=== PATIENT | female | born 1965 | race African-American/Black ===

== ENCOUNTER 2016-09-24 14:16 | Emergency (ER) | payer OTHER ==
[2016-09-24 14:21] VITALS: PULSE 85; BMI 32.8
--- NOTE | 2016-09-24 15:45 | PDOC ---
History of Present Illness - General History Source: Patient Exam Limitations: No Limitations - History of Present Illness Initial Comments: 09/24/16 16:08 The patient is a 51 year old female, with a significant past medical history of diabetes, breast CA and back arthritis, who presents to the emergency department with generalized weakness and urine incontinence since last night. She reports that she took a new medication yesterday, which she belives may be the cause of her symptoms. She notes that when she took it last night, she went to sleep around 10pm, waking up at 6:30am without any complications. While at work, her colleagues noticed that she was slightly slurring her speech. She notes that she felt confused, has a sour taste in her mouth and elicits some mild chest pain. She also notes that she checked her blood sugar this morning, which was 140s. She reports that she is currently being worked up for possible return of her breast CA. The patient denies shortness of breath, headache and dizziness. Denies fever, chills, nausea, vomit, diarrhea and constipation. Denies dysuria, frequency, urgency and hematuria. Allergies: None Past surgical history: None reported Social history: Current smoker (10 daily). No alcohol or drug use reported <Ascencion Ornelas - Last Filed: 09/24/16 16:08> <Aaliyah Torres - Last Filed: 09/24/16 21:05> - General History Source: Patient Exam Limitations: No Limitations <Shayla Green - Last Filed: 09/25/16 08:34> - General Chief Complaint: Weakness Stated Complaint: WEAKNESS Time Seen by Provider: 09/24/16 14:43 Past History <Ascencion Ornelas - Last Filed: 09/24/16 16:08> <Aaliyah Torres - Last Filed: 09/24/16 21:05> - Past Medical History Cancer: Yes (R BREAST) COPD: Yes Diabetes: Yes Suicide Attempt (Hx): No Other medical history: Back Arthritis - Psycho/Social/Smoking Cessation Hx Suicidal Ideation: No Smoking Status: Yes Smoking History: Current every day smoker Number of Cigarettes Smoked Daily: 10 Information on smoking cessation initiated: Yes 'Breaking Loose' booklet given: 09/24/16 Hx Alcohol Use: No Drug/Substance Use Hx: No Substance Use Type: None <Shayla Green - Last Filed: 09/25/16 08:34> - Past Medical History Allergies/Adverse Reactions: Allergies Allergy/AdvReac Type Severity Reaction Status Date / Time No Known Allergies Allergy Verified 09/24/16 14:21 Home Medications: Ambulatory Orders Gabapentin [Neurontin -] 300 mg PO TID 01/25/16 Letrozole 2.5 mg PO HS 01/25/16 Liraglutide [Victoza -] 1.8 mg SQ HS 01/25/16 Sitagliptin Phosphate [Januvia] 100 mg PO DAILY 01/25/16 Diclofenac Sodium 50 mg PO BID 09/24/16 Review of Systems - Review of Systems Able to Perform ROS?: Yes Comments:: 09/24/16 16:08 GENERAL/CONSTITUTIONAL: (+) Generalized weakness. No fever or chills. HEAD, EYES, EARS, NOSE AND THROAT: No change in vision. No ear pain or discharge. No sore throat. CARDIOVASCULAR: No chest pain or shortness of breath RESPIRATORY: No cough, wheezing, or hemoptysis. GASTROINTESTINAL: No nausea, vomiting, diarrhea or constipation. GENITOURINARY: (+) Urinary incontinence. No dysuria, frequency MUSCULOSKELETAL: No joint or muscle swelling or pain. No neck or back pain. SKIN: No rash NEUROLOGIC: No headache, vertigo, loss of consciousness, or change in strength/ sensation. ENDOCRINE: No increased thirst. No abnormal weight change HEMATOLOGIC/LYMPHATIC: No anemia, easy bleeding, or history of blood clots. ALLERGIC/IMMUNOLOGIC: No hives or skin allergy. <Ascencion Ornelas - Last Filed: 09/24/16 16:08> *Physical Exam - Vital Signs Last Vital Signs Temp Pulse Resp BP Pulse Ox 98 F 85 18 144/75 98 09/24/16 14:19 09/24/16 14:19 09/24/16 14:19 09/24/16 14:19 09/24/16 14:19 - Physical Exam Comments: 09/24/16 16:10 GENERAL: Awake, alert, and fully oriented, in no acute distress HEAD: No signs of trauma, normocephalic, atraumatic EYES: PERRLA, EOMI, sclera anicteric, conjunctiva clear ENT: Auricles normal inspection, hearing grossly normal, nares patent, oropharynx clear without exudates. Moist mucosa NECK: Normal ROM, supple, no lymphadenopathy, JVD, or masses LUNGS: No distress, speaks full sentences, clear to auscultation bilaterally HEART: Regular rate and rhythm, normal S1 and S2, no murmurs, rubs or gallops, peripheral pulses normal and equal bilaterally. ABDOMEN: Soft, nontender, normoactive bowel sounds. No guarding, no rebound. No masses EXTREMITIES: Normal inspection, Normal range of motion, no edema. No clubbing or cyanosis. NEUROLOGICAL: Cranial nerves II through XII grossly intact. Normal speech, normal gait, no focal sensorimotor deficits SKIN: Warm, Dry, normal turgor, no rashes or lesions noted. <Ascencion Ornelas - Last Filed: 09/24/16 16:08> - Vital Signs Last Vital Signs Temp Pulse Resp BP Pulse Ox 98 F 85 18 144/75 98 09/24/16 14:19 09/24/16 14:19 09/24/16 14:19 09/24/16 14:19 09/24/16 14:19 <Aaliyah Torres - Last Filed: 09/24/16 21:05> - Vital Signs Last Vital Signs Temp Pulse Resp BP Pulse Ox 98 F 85 18 144/75 98 09/24/16 14:19 09/24/16 14:19 09/24/16 14:19 09/24/16 14:19 09/24/16 14:19 <Shayla Green - Last Filed: 09/25/16 08:34> ED Treatment Course - LABORATORY CBC & Chemistry Diagram: 09/24/16 15:51 09/24/16 15:51 <Ascencion Ornelas - Last Filed: 09/24/16 16:08> - LABORATORY CBC & Chemistry Diagram: 09/24/16 15:51 09/24/16 15:51 - ADDITIONAL ORDERS Additional order review: Laboratory Results 09/24/16 09/24/16 18:49 15:51 Sodium 143 Potassium 3.9 Chloride 107 Carbon Dioxide 23 Anion Gap 13 BUN 8 Creatinine 0.7 Creat Clearance w eGFR > 60 Random Glucose 136 H Calcium 9.3 Total Bilirubin 0.2 D AST 14 L ALT 21 Alkaline Phosphatase 162 H Total Protein 7.5 Albumin 3.7 Urine Color Ltyellow Urine Appearance Clear Urine pH 5.0 Urine Protein Negative Urine Glucose (UA) 2+ H Urine Ketones Negative Urine Blood Negative Urine Nitrite Negative Urine Bilirubin Negative Urine Urobilinogen Negative Ur Leukocyte Esterase Negative Acetone, Qual Negative L 09/24/16 15:51 RBC 4.54 MCV 85.9 MCHC 32.0 RDW 14.3 MPV 11.4 H Neutrophils % 71.4 Lymphocytes % 21.3 D Monocytes % 5.8 Eosinophils % 0.8 Basophils % 0.7 <Aaliyah Torres - Last Filed: 09/24/16 21:05> - LABORATORY CBC & Chemistry Diagram: 09/24/16 15:51 09/24/16 15:51 <Shayla Green - Last Filed: 09/25/16 08:34> Medical Decision Making - Medical Decision Making 09/24/16 15:45 A portion of this note was documented by scribe services under my direction. I have reviewed the details of the note, within reason, and agree with the documentation with the following case summary and management plan written by me. Nursing documentation reviewed and incorporated into medical decision making 51 yo F h/o DM, breast CA, arthritis (managed by pain management) p/w complaint of generalized weakness. She was started on Diclofenac for her back pain, She tool one last night and awoke this morning very groggy She drove to work and was noted by staff members to be groggy She then drove to the ER, missed the exit and wandered for approximately 1 hours prior to arriving in the ER (according to her friend) She states that her back feels better She denies headache, nausea, vomiting She denies fevers or chills She had coffee and potato chips for breakfast. She had a protein shake for lunch. Fingerstick this morning 140 She currently feels a bit better She is concerned that she might have had an PR or a stroke Will do labs, ekg, head CT Pt is currently being worked up for recurrence of her breast cancer ?symptoms related to metastatic disease On examination Motor intact Ambulatory with no difficulty Sensation in tact Pt signed out to Dr Torres <Shayla Green - Last Filed: 09/25/16 08:34> *DC/Admit/Observation/Transfer - Attestations Scribe Attestion: 09/24/16 16:10 Documentation prepared by Ascencion Ornelas, acting as medical technologist chief for Shayla Green MD <CeciAscencion Lashell - Last Filed: 09/24/16 16:08> <Aaliyah Torres - Last Filed: 09/24/16 21:05> <Shayla Green - Last Filed: 09/25/16 08:34> Diagnosis at time of Disposition: Weakness Adverse effect of diclofenac sodium Qualifiers: Encounter type: initial encounter Qualified Code(s): T39.395A - Adverse effect of other nonsteroidal anti-inflammatory drugs [NSAID], initial encounter - Discharge Dispostion Disposition: HOME Condition at time of disposition: Stable - Patient Instructions Printed Discharge Instructions: Diclofenac, DI for Adverse Drug Reaction -- Other Additional Instructions: please follow up with your primary physician - Post Discharge Activity Work/School Note: Back to Work
[2016-09-24 16:10] LABS: BASOPHIL 0.7 % (0-2.0); EOSINOPHIL 0.8 % (0-4.5); MCH 27.5 pg (25.7-33.7); MEAN CELL VOLUME 85.9 fl (80-96); MEAN PLT VOLUME 11.4 fl (7.5-11.1); NEUTROPHILS 71.4 % (42.8-82.8); PLATELET COUNT 180 K/MM3 (134-434); RDW 14.3 % (11.6-15.6); WHITE BLOOD COUNT 13.1 K/mm3 (4.0-10.0)
[2016-09-24 17:08] LABS: ALBUMIN 3.7 g/dl (3.4-5.0); ALK PHOS 162 U/L (45-117); ANION GAP 13 (8-16); BILIRUBIN,TOTAL 0.2 mg/dL (0.2-1.0); CALCIUM 9.3 mg/dL (8.5-10.1); CO2 23 mmol/L (21-32); COCKROFT - GAULT 141.3635; CREATININE 0.7 mg/dL (0.55-1.02); GLUCOSE,RANDOM 136 mg/dL (74-106); SGOT/AST 14 U/L (15-37); SGPT/ALT 21 U/L (12-78); TOT PROT 7.5 g/dl (6.4-8.2)
[2016-09-24 19:11] LABS: ACETONE SERUM NEGATIVE (NEGATIVE)
[2016-09-24 19:23] LABS: URINE APPEARANCE CLEAR; URINE BILIRUBIN NEGATIVE (NEGATIVE); URINE BLOOD NEGATIVE (NEGATIVE); URINE COLOR LTYELLOW; URINE GLUCOSE (UA) 2+ (NEGATIVE); URINE KETONE NEGATIVE (NEGATIVE); URINE LEUK ESTERASE NEGATIVE (NEGATIVE); URINE NITRITE NEGATIVE (NEGATIVE); URINE PROTEIN NEGATIVE (NEGATIVE); URINE UROBILINOGEN NEGATIVE E.U./dl (0.2-1.0)
[2016-09-24 21:10] VITALS: BP 133/91; TEMP 98
--- NOTE | 2016-09-26 16:36 | EKG ---
Test Reason : Blood Pressure : / mmHG Vent. Rate : 086 BPM Atrial Rate : 086 BPM P-R Int : 166 ms QRS Dur : 080 ms QT Int : 372 ms P-R-T Axes : 043 016 015 degrees QTc Int : 445 ms NORMAL SINUS RHYTHM POSSIBLE LEFT ATRIAL ENLARGEMENT BORDERLINE ECG WHEN COMPARED WITH ECG OF 05-DEC-2012 10:47, NO SIGNIFICANT CHANGE WAS FOUND Confirmed by AMANDA ZAVALETA MD ([id number]) on 09/26/2016 4:35:45 PM Referred By: Confirmed By:AMANDA ZAVALETA MD
== END 2016-09-24 21:09 | disposition home or self-care (01) ==
LOC: JER 14:16
DX: T39.315A Adverse effect of propionic acid derivatives, initial encounter (principal); Y92.89 Other specified places as the place of occurrence of the external cause; E11.9 Type 2 diabetes mellitus without complications; Z79.84 Long term (current) use of oral hypoglycemic drugs; Z85.3 Personal history of malignant neoplasm of breast; M46.90 Unspecified inflammatory spondylopathy, site unspecified; F17.210 Nicotine dependence, cigarettes, uncomplicated
CPT/HCPCS: 36415; 70450-TC; 71010-TC; 80053; 81003; 82009; 85025; 87086; 93005; 93010; 99285-25

== ENCOUNTER 2017-06-13 12:18 | Emergency (ER) | payer OTHER ==
[2017-06-13 12:33] VITALS: BP 114/68; PULSE 94; TEMP 98.3; BMI 32.8
--- NOTE | 2017-06-13 13:29 | PDOC ---
History of Present Illness - General Chief Complaint: Cold Symptoms Stated Complaint: THROAT PAIN Time Seen by Provider: 06/13/17 13:09 History Source: Patient Exam Limitations: No Limitations - History of Present Illness Initial Comments: 06/13/17 13:28 52-year-old female presents to the ED with complaints of cough for the past 3 days along with fever for the past 3 days. Patient states when taking TheraFlu with good improvement but states to length of symptoms she decided come to the ER for further evaluation. Patient denies shortness of breath, chest pain, productive cough, Tylenol pain, or nausea. Patient does smoke cigarettes on a daily basis and states gets bronchitis frequently. Timing/Duration: reports: other (3 days) Severity: reports: mild Possible Cause: Yes: occasional episodes Associated Symptoms: reports: cough, fever/chills Past History - Travel Traveled outside of the country in the last 30 days: No - Past Medical History Allergies/Adverse Reactions: Allergies Allergy/AdvReac Type Severity Reaction Status Date / Time No Known Allergies Allergy Verified 06/13/17 12:33 Home Medications: Ambulatory Orders Gabapentin [Neurontin -] 300 mg PO TID 01/25/16 Letrozole 2.5 mg PO HS 01/25/16 Liraglutide [Victoza -] 1.8 mg SQ HS 01/25/16 Sitagliptin Phosphate [Januvia] 100 mg PO DAILY 01/25/16 Diclofenac Sodium 50 mg PO BID 09/24/16 Cancer: Yes (R BREAST) COPD: Yes Diabetes: Yes - Suicide/Smoking/Psychosocial Hx Smoking Status: Yes Smoking History: Current every day smoker Number of Cigarettes Smoked Daily: 10 Information on smoking cessation initiated: Yes 'Breaking Loose' booklet given: 06/13/17 Hx Alcohol Use: No Drug/Substance Use Hx: No Substance Use Type: None Patient Lives Alone: No Lives with/in: spouse/SO Review of Systems - Review of Systems Able to Perform ROS?: No Constitutional: Yes: Chills, Fever HEENTM: No: Symptoms Reported, Throat Pain Respiratory: Yes: Cough Cardiac (ROS): No: Symptoms Reported ABD/GI: No: Symptoms Reported : No: Symptoms Reported Musculoskeletal: No: Symptoms Reported Integumentary: No: Symptoms Reported Neurological: Yes: Headache *Physical Exam - Vital Signs Last Vital Signs Temp Pulse Resp BP Pulse Ox 98.3 F 94 H 19 114/68 99 06/13/17 12:31 06/13/17 12:31 06/13/17 12:31 06/13/17 12:31 06/13/17 12:31 - Physical Exam General Appearance: Yes: Nourished, Appropriately Dressed. No: Apparent Distress HEENT: positive: EOMI, BHARAT, Normal Voice, TMs Normal, Pharynx Normal. negative : Pale Conjunctivae Neck: positive: Supple Respiratory/Chest: positive: Lungs Clear, Normal Breath Sounds. negative: Respiratory Distress, Accessory Muscle Use Cardiovascular: positive: Regular Rhythm, Regular Rate. negative: Murmur Gastrointestinal/Abdominal: positive: Soft. negative: Tenderness Integumentary: positive: Normal Color, Warm, Moist Neurologic: positive: Normal Mood/Affect, Motor Strength 5/5 Medical Decision Making - Medical Decision Making 06/13/17 13:32 Patient with fever, cough, and headache for the past 3 days. Patient also smokes cigarette and daily basis and states her symptoms are similar to that of bronchitis which she's had in the past. Patient will be discharged with azithromycin and 2 days of prednisone. *DC/Admit/Observation/Transfer Diagnosis at time of Disposition: Bronchitis - Discharge Dispostion Disposition: HOME Condition at time of disposition: Good - Referrals - Patient Instructions Printed Discharge Instructions: DI for Acute Bronchitis Additional Instructions: Please take prednisone for the next 2 days as prescribed. please take azithromycin until completed. do not smoke cigarettes. - Post Discharge Activity
== END 2017-06-13 13:38 | disposition home or self-care (01) ==
LOC: JERFT 12:18
DX: J40 Bronchitis, not specified as acute or chronic (principal); E11.9 Type 2 diabetes mellitus without complications; Z79.84 Long term (current) use of oral hypoglycemic drugs; J44.9 Chronic obstructive pulmonary disease, unspecified; Z85.3 Personal history of malignant neoplasm of breast; F17.210 Nicotine dependence, cigarettes, uncomplicated
CPT/HCPCS: 99281-25

== ENCOUNTER 2017-09-01 21:22 | Inpatient (IN) | payer OTHER ==
--- NOTE | 2017-09-01 21:28 | PDOC ---
Rapid Medical Evaluation Chief Complaint: Pain Time Seen by Provider: 09/01/17 21:26 Medical Evaluation: Allergies Allergy/AdvReac Type Severity Reaction Status Date / Time No Known Allergies Allergy Verified 09/01/17 21:26 I have performed a brief in-person evaluation of this patient. The patient presents with a chief complaint of: abdominal pain today with nausea and vomiting; points to epigastric region Pertinent physical exam findings: No abd TTP. I have ordered the following: labs, Ua The patient will proceed to the ED for further evaluation.
[2017-09-01 21:43] LABS: HEMATOCRIT 41.7 % (32.4-45.2); HEMOGLOBIN 14.3 GM/dL (10.7-15.3); MCH 28.7 pg (25.7-33.7); MCHC 34.3 g/dl (32.0-36.0); MEAN CELL VOLUME 83.7 fl (80-96); MEAN PLT VOLUME 10.6 fl (7.5-11.1); PLATELET COUNT 248 K/MM3 (134-434); RBC 4.98 M/mm3 (3.60-5.2); RDW 14.4 % (11.6-15.6); WHITE BLOOD COUNT 21.4 K/mm3 (4.0-10.0)
[2017-09-01 21:50] LABS: ADD RBC MORPHOLOGY YES
[2017-09-01] MEDS ORDERED: SODIUM CHLORIDE 1,000 ML IV STA (22:16)
[2017-09-01] MEDS ORDERED: ONDANSETRON 4 MG/2 ML VIAL IVPUSH ONE (22:16)
--- NOTE | 2017-09-01 22:16 | PDOC ---
History of Present Illness - General Chief Complaint: Pain Stated Complaint: FATIGUE Time Seen by Provider: 09/01/17 21:26 History Source: Patient - History of Present Illness Initial Comments: 09/01/17 22:24 52-year-old female complaining of nausea vomiting and intermittent abdominal cramping since 4 PM. Patient reports that yesterday she ate alejandra greens. Unsure if this is related to that. Patient reports that her daughter had some abdominal cramping but symptoms not as severe as her. + bm prior to vomiting episode. unsure if able to pass flatus. patient also reports that she has been dizzy for the last 3 days and today the dizziness has improved. patient reports chronic leukocytosis x 6 months. Past medical history: SBO, breast CA ([facility] ; Dr. Castañeda), and NIDDM PMD: clinic in [facility] Past History - Past Medical History Allergies/Adverse Reactions: Allergies Allergy/AdvReac Type Severity Reaction Status Date / Time No Known Allergies Allergy Verified 09/01/17 21:26 Home Medications: Ambulatory Orders Letrozole 2.5 mg PO HS 01/25/16 Liraglutide [Victoza -] 1.8 mg SQ HS 01/25/16 Sitagliptin Phosphate [Januvia] 100 mg PO DAILY 01/25/16 Glipizide/Metformin HCl [Glipizide-Metformin 5-500 mg] 1 each PO DAILY 09/02/17 Sennosides [Senna -] 2 tab PO HS #30 tablet 09/05/17 Cancer: Yes (R BREAST) COPD: Yes Diabetes: Yes - Suicide/Smoking/Psychosocial Hx Smoking Status: Yes Smoking History: Current every day smoker Number of Cigarettes Smoked Daily: 10 Information on smoking cessation initiated: No 'Breaking Loose' booklet given: 06/13/17 Hx Alcohol Use: No Drug/Substance Use Hx: No Substance Use Type: None Review of Systems - Review of Systems Able to Perform ROS?: Yes Is the patient limited Uzbek proficient: No Constitutional: No: Symptoms Reported, See HPI, Chills, Diaphoresis, Fever, Loss of Appetite, Malaise, Night Sweats, Weakness, Weight Stable, Unintentional Wgt. Loss, Unexplained wgt Loss, Other ABD/GI: Yes: Nausea, Vomiting, Abdominal cramping : No: Symptoms Reported, See HPI, Burning, Dysuria, Discharge, Frequency, Flank Pain, Hematuria, Incontinence, Pain, Urgency, Testicular Mass, Testicular Swelling, Lesions, Testicular Pain, Other Musculoskeletal: No: Symptoms Reported, See HPI, Back Pain, Gout, Joint Pain, Joint Swelling, Muscle Pain, Muscle Weakness, Neck Pain, Joint Stiffness, Other Neurological: Yes: Dizziness. No: Symptoms reported, See HPI, Headache, Numbness, Paresthesia, Pre-Existing Deficit, Seizure, Tingling, Tremors, Weakness, Unsteady Gait, Ataxia, Other *Physical Exam - Vital Signs Last Vital Signs Temp Pulse Resp BP Pulse Ox 98.4 F 113 H 20 139/49 97 09/01/17 21:26 09/01/17 21:26 09/01/17 21:26 09/01/17 21:26 09/01/17 21:26 - Physical Exam General Appearance: Yes: Appropriately Dressed, Moderate Distress Respiratory/Chest: positive: Lungs Clear, Normal Breath Sounds Gastrointestinal/Abdominal: positive: Normal Bowel Sounds, Tender (RUQ and epigastric area) Musculoskeletal: positive: Normal Inspection Extremity: positive: Normal Capillary Refill, Normal Inspection, Normal Range of Motion Integumentary: positive: Normal Color, Dry, Warm Neurologic: positive: Fully Oriented, Alert, Normal Mood/Affect ED Treatment Course - LABORATORY CBC & Chemistry Diagram: 09/04/17 09:10 09/04/17 09:10 Progress Note - Progress Note Progress Note: A: SBO; abdominal pain P: cbc cmp lactic acid blood culture Medical Decision Making - Medical Decision Making 09/02/17 01:[address] Cooper. recommends NGT. WBC: 20,000. as per patient leukocytosis history for 6 months. 09/02/17 01:36 NGT placed drained ~ 200 ml of stomach content . confirmation xray pending 09/02/17 05:13 abdominal xray: NGT at the tip of the stomach *DC/Admit/Observation/Transfer Diagnosis at time of Disposition: Small bowel obstruction - Discharge Dispostion Disposition: HOME Decision to Admit order: Yes - Prescriptions - Referrals - Patient Instructions - Post Discharge Activity
[2017-09-01] MEDS ORDERED: ONDANSETRON 4 MG/2 ML VIAL ONE (22:26)
[2017-09-01] MEDS ORDERED: FAMOTIDINE 20 MG/50 ML IVPB 20 MG/50 ML MG IVPB ONE (22:26)
[2017-09-01 22:27] LABS: ANISOCYTOSIS OCCASIONAL; PLATELET ESTIMATE ADEQUATE
[2017-09-01] MEDS ORDERED: morphine CARPU-JECT 4 MG/1 ML DISP.SYRIN IVPUSH ONE (22:32)
[2017-09-01] MEDS ORDERED: FAMOTIDINE IV 20 MG/12 ML VIAL IVPUSH ONE (22:33)
[2017-09-01 22:39] LABS: VENOUS PC02 41.8 mmHg (38-52); VENOUS PH 7.4 (7.32-7.42)
[2017-09-01 22:44] LABS: INR 1.03 (0.82-1.09); PROTHROMBIN TIME (PATIENT) 11.6 SEC (9.7-13.0)
[2017-09-01] MEDS ORDERED: morphine SULFATE 4 MG/ML VIAL ONE (22:51)
[2017-09-01 22:54] LABS: ALBUMIN 4.2 g/dl (3.4-5.0); ANION GAP 11 (8-16); BILIRUBIN,TOTAL 0.3 mg/dL (0.2-1.0); BLOOD UREA NITROGEN 16 mg/dL (7-18); CALCIUM 9.8 mg/dL (8.5-10.1); CHLORIDE 106 mmol/L (98-107); CO2 22 mmol/L (21-32); CREATININE 0.8 mg/dL (0.55-1.02); GLUCOSE,RANDOM 198 mg/dL (74-106); LIPASE 317 U/L (73-393); POTASSIUM 4.3 mmol/L (3.5-5.1); SGOT/AST 12 U/L (15-37); SGPT/ALT 18 U/L (12-78); SODIUM 139 mmol/L (136-145); TOT PROT 8.9 g/dl (6.4-8.2)
[2017-09-01 22:55] LABS: ALK PHOS 147 U/L (45-117)
[2017-09-01 23:22] LABS: URINE APPEARANCE CLEAR; URINE BILIRUBIN NEGATIVE (<2.0 mg/dL); URINE COLOR YELLOW; URINE GLUCOSE (UA) NEGATIVE (NEGATIVE); URINE KETONE NEGATIVE (NEGATIVE); URINE LEUK ESTERASE NEGATIVE (NEGATIVE); URINE NITRITE NEGATIVE (NEGATIVE); URINE PROTEIN NEGATIVE (NEGATIVE); URINE UROBILINOGEN 4.0 E.U/dl mg/dL (0.2-1.0)
[2017-09-02] MEDS ORDERED: SODIUM CHLORIDE 1,000 ML IV STA (01:18)
[2017-09-02] MEDS ORDERED: morphine CARPU-JECT 4 MG/1 ML DISP.SYRIN IVPUSH ONE (01:25)
[2017-09-02] MEDS ORDERED: morphine SULFATE 4 MG/ML VIAL ONE ×4 (01:40→11:57)
[2017-09-02] MEDS ORDERED: LIDOCAINE HCL 2% JELLY (5 ML/TUBE) ONE (01:48)
--- NOTE | 2017-09-02 03:02 | HP ---
CHIEF COMPLAINT: N/V abd pain PCP: [facility] HISTORY OF PRESENT ILLNESS: This is a 52 year old female with a significant past medical history of SBO many years ago, hysterectomy, chronic leukocytosis who presented to the ED with N/V and abdominal cramping since 4pm today. She reports she had a normal BM this morning and believes she is passing gas. ER course was notable for: (1) WBC 21.4 (2) lactic acid WNL Recent Travel: pt denies PAST MEDICAL HISTORY: SBO, BrCA 2009 s/p chemo/XRT, NIDDM, COPD, DM, chronic leukocytosis x 6months PAST SURGICAL HISTORY: L breast lumpectomy hysterectomy age 39 due to fibroids Social History: Smokin/4 ppd Alcohol: pt denies Drugs: pt denies Family History: mother with DM/HTN father murdered 2 siblings, no medical problems. Allergies No Known Allergies Allergy (Verified 09/01/17 21:26) HOME MEDICATIONS: 3 Medication Instructions Recorded Gabapentin [Neurontin -] 300 mg PO TID 01/25/16 Letrozole 2.5 mg PO HS 01/25/16 Liraglutide [Victoza -] 1.8 mg SQ HS 01/25/16 Sitagliptin Phosphate [Januvia] 100 mg PO DAILY 01/25/16 Diclofenac Sodium 50 mg PO BID 09/24/16 predniSONE [Deltasone -] 40 mg PO DAILY #4 tablet 06/13/17 REVIEW OF SYSTEMS CONSTITUTIONAL: Absent: fever, chills, diaphoresis, generalized weakness, malaise, loss of appetite, weight change HEENT: Absent: rhinorrhea, nasal congestion, throat pain, throat swelling, difficulty swallowing, mouth swelling, ear pain, eye pain, visual changes CARDIOVASCULAR: Absent: chest pain, syncope, palpitations, irregular heart rate, lightheadedness , peripheral edema RESPIRATORY: Absent: cough, shortness of breath, dyspnea with exertion, orthopnea, wheezing, stridor, hemoptysis GASTROINTESTINAL: abdominal pain, nausea, vomiting Absent: abdominal distension, diarrhea, constipation, melena, hematochezia GENITOURINARY: Absent: dysuria, frequency, urgency, hesitancy, hematuria, flank pain, genital pain MUSCULOSKELETAL: Absent: myalgia, arthralgia, joint swelling, back pain, neck pain SKIN: Absent: rash, itching, pallor HEMATOLOGIC/IMMUNOLOGIC: Absent: easy bleeding, easy bruising, lymphadenopathy, frequent infections ENDOCRINE: Absent: unexplained weight gain, unexplained weight loss, heat intolerance, cold intolerance NEUROLOGIC: Absent: headache, focal weakness or paresthesias, dizziness, unsteady gait, seizure, mental status changes, bladder or bowel incontinence PSYCHIATRIC: Absent: anxiety, depression, suicidal or homicidal ideation, hallucinations. PHYSICAL EXAMINATION Vital Signs - 24 hr 3 09/01/17 21:26 Temperature 98.4 F Pulse Rate 113 H Respiratory 20 Rate Blood Pressure 139/49 O2 Sat by Pulse 97 Oximetry (%) GENERAL: Awake, alert, and fully oriented, in no acute distress. HEAD: Normal with no signs of trauma. EYES: Pupils equal, round and reactive to light, extraocular movements intact, sclera anicteric, conjunctiva clear. No lid lag. EARS, NOSE, THROAT: Ears normal, nares patent, oropharynx clear without exudates. Moist mucous membranes. NECK: Normal range of motion, supple without lymphadenopathy, JVD, or masses. LUNGS: Breath sounds equal, clear to auscultation bilaterally. No wheezes, and no crackles. No accessory muscle use. HEART: Regular rate and rhythm, normal S1 and S2 without murmur, rub or gallop. ABDOMEN: NGT in place. Soft, nontender, not distended, normoactive bowel sounds , no guarding, no rebound, no masses. No hepatomegaly or splenomegaly. MUSCULOSKELETAL: Normal range of motion at all joints. No bony deformities or tenderness. No CVA tenderness. UPPER EXTREMITIES: 2+ pulses, warm, well-perfused. No cyanosis. No clubbing. No peripheral edema. LOWER EXTREMITIES: 2+ pulses, warm, well-perfused. No calf tenderness. No peripheral edema. NEUROLOGICAL: Cranial nerves II-XII intact. Normal speech. Normal gait. PSYCHIATRIC: Cooperative. Good eye contact. Appropriate mood and affect. SKIN: Warm, dry, normal turgor, no rashes or lesions noted, normal capillary refill. Laboratory Results - last 24 hr 3 09/01/17 09/01/17 09/01/17 21:28 21:28 21:36 WBC 21.4 H D RBC 4.98 Hgb 14.3 D Hct 41.7 MCV 83.7 MCH 28.7 MCHC 34.3 RDW 14.4 Plt Count 248 D MPV 10.6 Total Counted 100 Neutrophils % No Result Required. Neutrophils % (Manual) 86.0 H Lymphocytes % No Result Required. Lymphocytes % (Manual) 10.0 Monocytes % (Manual) 4 Platelet Estimate Adequate Anisocytosis Occasional PT with INR INR PTT (Actin FS) VBG pH POC VBG pCO2 POC VBG pO2 Mixed VBG HCO3 Sodium 139 Potassium 4.3 Chloride 106 Carbon Dioxide 22 Anion Gap 11 BUN 16 Creatinine 0.8 Creat Clearance w eGFR > 60 Random Glucose 198 H Lactic Acid Calcium 9.8 Total Bilirubin 0.3 D AST 12 L ALT 18 Alkaline Phosphatase 147 H Troponin I < 0.02 Total Protein 8.9 H Albumin 4.2 Lipase 317 Urine Color Urine Appearance Urine pH Ur Specific [place] Urine Protein Urine Glucose (UA) Urine Ketones Urine Blood Urine Nitrite Urine Bilirubin Urine Urobilinogen Ur Leukocyte Esterase Blood Type Antibody Screen 3 09/01/17 09/01/17 09/01/17 09/01/17 22:20 22:20 22:20 22:40 WBC RBC Hgb Hct MCV MCH MCHC RDW Plt Count MPV Total Counted Neutrophils % Neutrophils % (Manual) Lymphocytes % Lymphocytes % (Manual) Monocytes % (Manual) Platelet Estimate Anisocytosis PT with INR 11.60 INR 1.03 PTT (Actin FS) 29.0 VBG pH 7.40 POC VBG pCO2 41.8 POC VBG pO2 24.0 L Mixed VBG HCO3 25.1 H Sodium Potassium Chloride Carbon Dioxide Anion Gap BUN Creatinine Creat Clearance w eGFR Random Glucose Lactic Acid 1.6 Calcium Total Bilirubin AST ALT Alkaline Phosphatase Troponin I Total Protein Albumin Lipase Urine Color Urine Appearance Urine pH Ur Specific [place] Urine Protein Urine Glucose (UA) Urine Ketones Urine Blood Urine Nitrite Urine Bilirubin Urine Urobilinogen Ur Leukocyte Esterase Blood Type O POSITIVE Antibody Screen Negative 3 Urine Color Yellow 09/01/17 23:20 Urine Appearance Clear 09/01/17 23:20 Urine pH 5.0 (5.0-8.0) 09/01/17 23:20 Ur Specific [place] 1.032 (1.001-1.035) 09/01/17 23:20 Urine Protein Negative (NEGATIVE) 09/01/17 23:20 Urine Glucose (UA) Negative (NEGATIVE) 09/01/17 23:20 Urine Ketones Negative (NEGATIVE) 09/01/17 23:20 Urine Blood Negative (NEGATIVE) 09/01/17 23:20 Urine Nitrite Negative (NEGATIVE) 09/01/17 23:20 Urine Bilirubin Negative (<2.0 mg/dL) 09/01/17 23:20 Urine Urobilinogen 4.0 e.u/dl H 09/01/17 23:20 Ur Leukocyte Esterase Negative (NEGATIVE) 09/01/17 23:[address] abd/pelvis with contrast THIS IS A PRELIMINARY REPORT FROM IMAGING [facility]PERATOR IMPRESSION: Proximal small bowel obstruction with left lower quadrant transition point, possibly due to adhesions, without abscess or free air THIS DOCUMENT HAS BEEN ELECTRONICALLY SIGNED Trevor Levi MD 09/02/2017 00:51 EST ASSESSMENT/PLAN: 52yF with PMH SBO, BrCA 2009 s/p chemo/XRT, NIDDM, DM, chronic leukocytosis x 6months presented to the ED with N/V abdominal pain. SBO - NGT in place - morphine for pain PRN - ED spoke to Dr. Cooper, surgical consult appreciated - NPO - IVF leukocytosis - pt unsure of exact baseline, given no fever or other s/s acute infection will cont to monitor NIDDM - hold po meds while NPO - BGM with Novolog SS QID BrCA - cont letrozole DVT PPX - heparin 5000u BID FEN - NS @ 100cc/hr - BMP in am - NPO Dispo: Pt currently requires inpatient management of her emergent symptoms. Visit type - Emergency Visit Emergency Visit: Yes ED Registration Date: 09/01/17 Care time: The patient presented to the Emergency Department on the above date and was hospitalized for further evaluation of their emergent condition. - New Patient This patient is new to me today: Yes Date on this admission: 09/02/17 - Critical Care Critical Care patient: No Hospitalist Screening - Colonoscopy Questionnaire Colonoscopy Questionnaire: Colonoscopy Questionnaire - Patient: 50 - 75 years old and never had a screening colonoscopy: Unknown History of colon or rectal polyps, or CA: No History of IBD, Crohn's disease or UC: No History of abdominal radiation therapy as a child: No - Relative: 1 with colon or rectal CA, or polyps at age 60 or younger: No Colon or rectal CA diagnosed at age 45 or younger: No Multiple relatives with colon or rectal CA: No - Outcome: Screening Result: Negative Screen
[2017-09-02] MEDS ORDERED: ACETAMINOPHEN 1000 MG/100 ML VIAL (NON FORMULARY) IVPB PRN (03:08)
[2017-09-02] MEDS: SODIUM CHLORIDE 1,000 ML IV SCH ×2 (03:51→21:16)
[2017-09-02] MEDS ORDERED: ONDANSETRON 4 MG/2 ML VIAL ONE ×2 (04:44→11:56)
[2017-09-02] MEDS: morphine SULFATE 4 MG/ML VIAL IVPUSH PRN ×5 (04:48→20:30)
[2017-09-02] MEDS: ONDANSETRON 4 MG/2 ML VIAL IVPUSH PRN ×2 (04:48→12:25)
--- NOTE | 2017-09-02 09:59 | EKG ---
Test Reason : Blood Pressure : / mmHG Vent. Rate : 074 BPM Atrial Rate : 074 BPM P-R Int : 176 ms QRS Dur : 074 ms QT Int : 386 ms P-R-T Axes : 036 006 015 degrees QTc Int : 428 ms NORMAL SINUS RHYTHM CANNOT RULE OUT ANTERIOR INFARCT , AGE UNDETERMINED ABNORMAL ECG WHEN COMPARED WITH ECG OF 24-SEP-2016 16:32, NO SIGNIFICANT CHANGE WAS FOUND Confirmed by MD Shaina, Volodymyr ([id number]) on 09/02/2017 9:58:52 AM Referred By: Confirmed By:Volodymyr Merritt MD
[2017-09-02] MEDS: HEPARIN NA (PORCINE) 5,000 UNITS/ML 1ML VIAL SQ SCH ×2 (10:34→21:15)
[2017-09-02 11:07] VITALS: BMI 32.8
--- NOTE | 2017-09-02 11:09 | PN ---
Progress Note, Physician Chief Complaint: Abdominal pain SBO History of Present Illness: NAD, pain improved NGT, NPO to be seen by surgery IVF Acute on Chronic leukocytosis? - Current Medication List Current Medications: Active Medications Acetaminophen (Ofirmev Injection -) 1,000 mg IVPB Q6H PRN PRN Reason: PAIN LEVEL 4 - 6 Heparin Sodium (Porcine) (Heparin -) 5,000 unit SQ BID [facility] Last Admin: 09/02/17 10:34 Dose: 5,000 unit Sodium Chloride (Normal Saline -) 1,000 mls @ 100 mls/hr IV ASDIR [facility] Last Admin: 09/02/17 03:51 Dose: 100 mls/hr Morphine Sulfate (Morphine Sulfate) 2 mg IVPUSH Q4H PRN PRN Reason: PAIN LEVEL 7 - 10 Last Admin: 09/02/17 08:28 Dose: 2 mg Ondansetron HCl (Zofran Injection) 4 mg IVPUSH Q6H PRN PRN Reason: NAUSEA AND/OR VOMITING Last Admin: 09/02/17 04:48 Dose: 4 mg - Objective Vital Signs: Vital Signs Temperature 98.4 F 09/01/17 21:26 Pulse Rate 79 09/02/17 10:57 Respiratory Rate 18 09/02/17 10:57 Blood Pressure 153/81 09/02/17 10:57 O2 Sat by Pulse Oximetry (%) 98 09/02/17 10:57 Constitutional: Yes: Well Nourished, Calm, Mild Distress Cardiovascular: Yes: Regular Rate and Rhythm Respiratory: Yes: Regular Gastrointestinal: Yes: Normal Bowel Sounds, Soft, Abdomen, Obese Musculoskeletal: Yes: WNL Extremities: Yes: WNL Edema: No Neurological: Yes: Alert, Oriented Psychiatric: Yes: Alert, Oriented Labs: CBC, BMP 09/01/17 21:28 09/01/17 21:28 INR, PTT INR 1.03 (0.82-1.09) 09/01/17 22:20 Problem List - Problems (1) Small bowel obstruction Assessment/Plan: -NPO -NGT -Serial abdominal Xrays -Surgery consult -daily labs -pain management with acetaminophen IV and morphine Code(s): K56.609 - UNSP INTESTNL OBST, UNSP TO PARTIAL VERSUS COMPLETE OBST (2) Leukocytosis Assessment/Plan: Acute on Chronic -likely imflammatory -no LA -ID consult to r/o any infectious etiology -see oncologist outpatient for history of breast CA- on Letrozole O/P Code(s): D72.829 - ELEVATED WHITE BLOOD CELL COUNT, UNSPECIFIED Qualifiers: Leukocytosis type: unspecified Qualified Code(s): D72.829 - Elevated white blood cell count, unspecified (3) Diabetes Assessment/Plan: last A1c 1 year ago was 8.5 -repeat A1c at 8.9 -BGM -D50 IVP for BGM below 70 mg/dl -Insulin sliding scale Code(s): E11.9 - TYPE 2 DIABETES MELLITUS WITHOUT COMPLICATIONS Assessment/Plan see problem list DVT prophylaxis
[2017-09-02 13:21] LABS: BASO % 0.4 % (0-2.0); EOS % 0.7 % (0-4.5); HEMATOCRIT 36.8 % (32.4-45.2); HEMOGLOBIN 12.1 GM/dL (10.7-15.3); LYMPH % 24.8 % (8-40); MCHC 32.8 g/dl (32.0-36.0); MEAN CELL VOLUME 85.2 fl (80-96); MEAN PLT VOLUME 10.5 fl (7.5-11.1); MONO % 5.7 % (3.8-10.2); NEUT % 68.4 % (42.8-82.8); PLATELET COUNT 205 K/MM3 (134-434); RBC 4.32 M/mm3 (3.60-5.2); RDW 14.3 % (11.6-15.6); WHITE BLOOD COUNT 12.8 K/mm3 (4.0-10.0)
[2017-09-02 14:04] LABS: ANION GAP 8 (8-16); BLOOD UREA NITROGEN 9 mg/dL (7-18); CALCIUM 8.5 mg/dL (8.5-10.1); CHLORIDE 110 mmol/L (98-107); CO2 24 mmol/L (21-32); CREATININE 0.6 mg/dL (0.55-1.02); GLUCOSE,RANDOM 160 mg/dL (74-106); MAGNESIUM 1.8 mg/dL (1.8-2.4); PHOSPHOROUS 3.6 mg/dL (2.5-4.9); POTASSIUM 3.9 mmol/L (3.5-5.1); SODIUM 142 mmol/L (136-145)
[2017-09-02 14:22] LABS: URINE APPEARANCE CLEAR; URINE BILIRUBIN NEGATIVE (<2.0 mg/dL); URINE COLOR YELLOW; URINE GLUCOSE (UA) NEGATIVE (NEGATIVE); URINE KETONE TRACE (NEGATIVE); URINE LEUK ESTERASE NEGATIVE (NEGATIVE); URINE NITRITE NEGATIVE (NEGATIVE); URINE PROTEIN NEGATIVE (NEGATIVE); URINE UROBILINOGEN NEGATIVE mg/dL (0.2-1.0)
--- NOTE | 2017-09-02 15:33 | CONSULT ---
Consult Consult Specialty:: General Surgery Referred by:: ER/Dr. Tony Reason for Consultation:: SBO - History of Present Illness Chief Complaint: epigastric pain, n/v History of Present Illness: 52yo F smoker with h/o breast CA s/p R lumpectomy and XRT 2008, s/p c-sxn, s/p hysterectomy 13 yrs ago for fibroids, DM2, herniated disc in lower back, COPD, chronic leukocytosis, h/o SBO ~10 yrs ago treated conservatively, presented with acute onset of epigastric pain while driving yesterday associated with N/V afterward of her previous meal. The pain is "like contractions," and has been better after NGT placement in ER and morphine. In ER, she had wbc 21 initially, down to 12.8 today, and CT showing partial SBO with transition in LLQ, some dilated jejunal loops with normal caliber ileal loops and air/stool in colon. Pt reports passing gas, but has not passed stool yet. No fever/chills, normal tendency to constipation, no recent illness. She describes some visual changes on occasion recently that she usually associates with low blood sugar, but at those times, her sugar was normal. Has not had any abdominal pain or problems like previous SBO in these intervening years. NGT was placed by ER, 600 so far in canister. NPO/IVF. Seen in ER (no room yet), resting comfortably. Pt admitted to medicine, surgery asked to evaluate. - History Source History Provided By: Patient Limitations to Obtaining History: No Limitations - Past Medical History Pulmonary: Yes: COPD Gastrointestinal: Yes: GERD Reproductive: Yes: Fibroids ...: No Heme/Onc: Yes: Cancer (breast s/p R lumpectomy/XRT 2008) Musculoskeletal: Yes: Chronic low back pain (herniated disc) Endocrine: Yes: Diabetes Mellitus - Past Surgical History Past Surgical History: Yes: , Hysterectomy - Alcohol/Substance Use Hx Alcohol Use: No History of Substance Use: reports: None - Smoking History Smoking history: Current every day smoker Have you smoked in the past 12 months: Yes Aproximately how many cigarettes per day: 6 (cut down recently) - Social History ADL: Independent Home Medications - Allergies Allergies/Adverse Reactions: Allergies Allergy/AdvReac Type Severity Reaction Status Date / Time No Known Allergies Allergy Verified 09/01/17 21:26 - Home Medications Home Medications: Ambulatory Orders Letrozole 2.5 mg PO HS 01/25/16 Liraglutide [Victoza -] 1.8 mg SQ HS 01/25/16 Sitagliptin Phosphate [Januvia] 100 mg PO DAILY 01/25/16 Glipizide/Metformin HCl [Glipizide-Metformin 5-500 mg] 1 each PO DAILY 09/02/17 Family Disease History - Family Disease History Family History: Unremarkable (noncontributory) Review of Systems - Review of Systems Constitutional: denies: Chills, Fever Eyes: reports: Recent Change in Vision (describes episodes of ?floaters - usually related to low blood sugar but last 2 times glucose was normal in 90s- 100s). denies: Blurred Vision HENT: denies: Difficult Swallowing, Throat Pain Neck: denies: Swollen Glands, Tenderness Cardiovascular: denies: Chest Pain, Palpitations Respiratory: denies: Cough, SOB Gastrointestinal: reports: Abdominal Pain (with hpi), Constipation (tends to usually), Nausea, Vomiting (with hpi). denies: Diarrhea Genitourinary: denies: Burning, Dysuria Musculoskeletal: reports: Back Pain (chronic). denies: Joint Pain Integumentary: denies: Change in Color, Rash Neurological: denies: Dizziness, Headache Psychiatric: denies: Anxiety, Depression Physical Exam Vital Signs: Vital Signs Temperature 98.4 F 09/01/17 21:26 Pulse Rate 79 09/02/17 10:57 Respiratory Rate 18 09/02/17 11:49 Blood Pressure 153/81 09/02/17 10:57 O2 Sat by Pulse Oximetry (%) 95 09/02/17 11:49 Constitutional: Yes: Well Nourished, No Distress, Calm Eyes: Yes: Conjunctiva Clear, EOM Intact HENT: Yes: Atraumatic, Normocephalic, Other (NGT in place with clear and red- tinged output, ~700 in canister) Neck: Yes: Supple, Trachea Midline Cardiovascular: Yes: Regular Rate and Rhythm, Murmur (systolic) Respiratory: Yes: Regular, CTA Bilaterally Gastrointestinal: Yes: Soft, Abdomen, Obese, Hypoactive Bowel Sounds, Other ( healed Pfannenstiel and lower midline scars). No: Tenderness, Tenderness, Epigastrium ...Rectal Exam: Yes: Deferred Renal/: No: CVA Tenderness - Left, CVA Tenderness - Right Musculoskeletal: No: Back Pain (no direct tenderness), Joint Swelling Extremities: No: Cool, Cyanosis Edema: No Peripheral Pulses WNL: Yes Integumentary: No: Jaundice, Rash Neurological: Yes: Alert, Oriented Psychiatric: Yes: Alert, Oriented Labs: CBC, BMP 09/02/17 13:04 09/02/17 13:04 CMP Sodium 142 mmol/L (136-145) 09/02/17 13:04 Potassium 3.9 mmol/L (3.5-5.1) 09/02/17 13:04 Chloride 110 mmol/L (98-107) H 09/02/17 13:04 Carbon Dioxide 24 mmol/L (21-32) 09/02/17 13:04 Anion Gap 8 (8-16) 09/02/17 13:04 BUN 9 mg/dL (7-18) 09/02/17 13:04 Creatinine 0.6 mg/dL (0.55-1.02) 09/02/17 13:04 Creat Clearance w eGFR > 60 (>60) 09/01/17 21:28 Random Glucose 160 mg/dL (74-106) H 09/02/17 13:04 Hemoglobin A1c % 8.9 % (4.8-6.0) H 09/02/17 13:04 Lactic Acid 1.6 mmol/L (0.0-2.0) 09/01/17 22:40 Calcium 8.5 mg/dL (8.5-10.1) 09/02/17 13:04 Phosphorus 3.6 mg/dL (2.5-4.9) 09/02/17 13:04 Magnesium 1.8 mg/dL (1.8-2.4) 09/02/17 13:04 Total Bilirubin 0.3 mg/dL (0.2-1.0) D 09/01/17 21:28 AST 12 U/L (15-37) L 09/01/17 21:28 ALT 18 U/L (12-78) 09/01/17 21:28 Alkaline Phosphatase 147 U/L (45-117) H 09/01/17 21:28 Troponin I < 0.02 ng/ml (0.00-0.05) 09/01/17 21:36 Total Protein 8.9 g/dl (6.4-8.2) H 09/01/17 21:28 Albumin 4.2 g/dl (3.4-5.0) 09/01/17 21:28 Lipase 317 U/L (73-393) 09/01/17 21:28 INR, PTT INR 1.03 (0.82-1.09) 09/01/17 22:20 Urine Test Results Urine Color Yellow 09/02/17 14:06 Urine Appearance Clear 09/02/17 14:06 Urine pH 5.0 (5.0-8.0) 09/02/17 14:06 Ur Specific [place] 1.025 (1.001-1.035) 09/02/17 14:06 Urine Protein Negative (NEGATIVE) 09/02/17 14:06 Urine Glucose (UA) Negative (NEGATIVE) 09/02/17 14:06 Urine Ketones Trace (NEGATIVE) H 09/02/17 14:06 Urine Blood Negative (NEGATIVE) 09/02/17 14:06 Urine Nitrite Negative (NEGATIVE) 09/02/17 14:06 Urine Bilirubin Negative (<2.0 mg/dL) 09/02/17 14:06 Ur Leukocyte Esterase Negative (NEGATIVE) 09/02/17 14:06 Imaging - Results X-ray: Report Reviewed, Image Reviewed (NGT in place on AXR, upright films from today with paucity of gas, no free air, no contrast visible in colon) Cat Scan: Report Reviewed, Image Reviewed (images personally reviewed, consistent with partial SBO, no free air, no free fluid, s/p hysterectomy) Problem List - Problems (1) Partial intestinal obstruction Assessment/Plan: admitted to medicine NPO/NGT/IVF hold po meds while NGT/NPO GI/DVT prophylaxis serial AXR and exams keep lytes in normal range will follow with you Thank you for the opportunity to participate in the care of this patient. Code(s): K56.600 - PARTIAL INTESTINAL OBSTRUCTION, UNSPECIFIED TO CAUSE Qualifiers: Intestinal obstruction type: obstruction due to adhesions Qualified Code(s) : K56.51 - Intestinal adhesions [bands], with partial obstruction (2) Epigastric pain Code(s): R10.13 - EPIGASTRIC PAIN (3) Leukocytosis Assessment/Plan: down today, per notes has been followed as outpatient for this Code(s): D72.829 - ELEVATED WHITE BLOOD CELL COUNT, UNSPECIFIED Qualifiers: Leukocytosis type: unspecified Qualified Code(s): D72.829 - Elevated white blood cell count, unspecified (4) Diabetes mellitus type 2 in obese Code(s): E11.69 - TYPE 2 DIABETES MELLITUS WITH OTHER SPECIFIED COMPLICATION; E66.9 - OBESITY, UNSPECIFIED
[2017-09-02] MEDS ORDERED: MORPHINE SULFATE 10 MG/1 ML *VIAL ONE (16:41)
--- NOTE | 2017-09-02 17:06 | CON.ID ---
Consult Consult Specialty:: Infectious Disease Referred by:: Milvia Harrington Reason for Consultation:: SBO; eval for ABX - History of Present Illness Chief Complaint: Nausea and vomiting History of Present Illness: The patient is a 52 yo f w/ PMH chronic leukoctosis, DM, Hysterectomy, Csection , SBO 10 yrs ago who comes into the ED c/o a 1 day hx nasuea, vomiting and abdominal cramping. CT scan done in the ED showed SBO. Patient seen and examined in the ED. Patent states that she feels much better after NGT placement. Patient denies chest pain, shortness of breath, Diarrhea, constipation, dysuria, fevers and chills. Patient denies recent travel or sick contacts. Patient endorses passing gas. - History Source History Provided By: Patient Limitations to Obtaining History: No Limitations - Past Medical History Pulmonary: Yes: COPD Gastrointestinal: Yes: GERD Musculoskeletal: Yes: Chronic low back pain (herniated disc) Endocrine: Yes: Diabetes Mellitus - Past Surgical History Past Surgical History: Yes: , Hysterectomy - Alcohol/Substance Use Hx Alcohol Use: No History of Substance Use: reports: None - Smoking History Smoking history: Current every day smoker Have you smoked in the past 12 months: Yes Aproximately how many cigarettes per day: 6 (cut down recently) - Social History ADL: Independent Home Medications - Allergies Allergies/Adverse Reactions: Allergies Allergy/AdvReac Type Severity Reaction Status Date / Time No Known Allergies Allergy Verified 09/01/17 21:26 - Home Medications Home Medications: Ambulatory Orders Letrozole 2.5 mg PO HS 01/25/16 Liraglutide [Victoza -] 1.8 mg SQ HS 01/25/16 Sitagliptin Phosphate [Januvia] 100 mg PO DAILY 01/25/16 Glipizide/Metformin HCl [Glipizide-Metformin 5-500 mg] 1 each PO DAILY 09/02/17 Review of Systems - Review of Systems Constitutional: denies: Chills, Diaphoresis, Fever Cardiovascular: denies: Chest Pain, Edema, Palpitations, Shortness of Breath Respiratory: denies: Cough, Hemoptysis, Orthopnea, SOB Gastrointestinal: reports: Abdominal Pain, Nausea, Vomiting. denies: Constipation, Diarrhea, Vomiting Blood Neurological: reports: No Symptoms Physical Exam Vital Signs: Vital Signs Temperature 98.4 F 09/01/17 21:26 Pulse Rate 79 09/02/17 10:57 Respiratory Rate 18 09/02/17 11:49 Blood Pressure 153/81 09/02/17 10:57 O2 Sat by Pulse Oximetry (%) 95 09/02/17 11:49 Constitutional: Yes: Well Nourished, No Distress, Calm, Other (NGT in place draining wel) Cardiovascular: Yes: Regular Rate and Rhythm, S1, S2. No: JVD, Gallop, Murmur, Rub Respiratory: Yes: Regular, CTA Bilaterally. No: Cough Gastrointestinal: Yes: Soft, Abdomen, Obese, Hypoactive Bowel Sounds. No: Tenderness Edema: No Neurological: Yes: Alert, Oriented Psychiatric: Yes: Alert, Oriented Labs: CBC, BMP 09/02/17 13:04 09/02/17 13:04 Imaging - Results Chest X-ray: Report Reviewed, Image Reviewed Cat Scan: Report Reviewed Ultrasound: Report Reviewed EKG: Report Reviewed Assessment/Plan The patient is a 52 yo f w/ PMH chronic leukocytosis, SBO. multiple abdominal surgeries in the past admitted for the treatment of SBO. -Patient denies fevers, chills, cough, diarrhea, -No active signs of infection or potential sources of infection seen -No indication for ABX at this time -rest of MGMT as per surgery and primary team -Thank you for this consultive opportunity. Will sign off; please reconsult as indicated. -case d/w Dr. [place]
--- NOTE | 2017-09-02 17:12 | PN ---
Teaching Attending Note Name of Resident: Jag Villanueva ATTENDING PHYSICIAN STATEMENT I saw and evaluated the patient. I reviewed the resident's note and discussed the case with the resident. I agree with the resident's findings and plan as documented. SUBJECTIVE: OBJECTIVE: ASSESSMENT AND PLAN: leukocytosis- suspect reactive to the vomiting also has longstanding history of chronic leukocytosis- with outpt f/u with oncology ongoing no evidence acute infection, cultures sent, no need for antibiotics at this time sbo- management per surgery smoking cessation Problem List - Problems (1) Leukocytosis Code(s): D72.829 - ELEVATED WHITE BLOOD CELL COUNT, UNSPECIFIED Qualifiers: Leukocytosis type: unspecified Qualified Code(s): D72.829 - Elevated white blood cell count, unspecified (2) Small bowel obstruction Code(s): K56.609 - UNSP INTESTNL OBST, UNSP TO PARTIAL VERSUS COMPLETE OBST
[2017-09-02] MEDS: INSULIN SLIDING SCALE (NOVOLOG) 1 VIAL SQ SCH (17:26)
[2017-09-02] MEDS ORDERED: DEXTROSE 50%-WATER - 25 GM/50 ML VIAL IVPUSH PRN (17:35)
[2017-09-03] MEDS: morphine SULFATE 4 MG/ML VIAL IVPUSH PRN ×3 (00:52→14:10)
[2017-09-03] MEDS: INSULIN SLIDING SCALE (NOVOLOG) 1 VIAL SQ SCH ×3 (06:06→17:54)
--- NOTE | 2017-09-03 06:23 | HOSP ---
Subjective - Review of Symptoms Events since last encounter: called by nurse pt reports she feels like her throat is closing up. Subjective: pt reports that she feels like her throat is swelling up. She reports irritation to her throat. Denies and difficulty breathing. Physical Examination Vital Signs: Vital Signs Temperature 97.8 F 09/03/17 02:00 Pulse Rate 75 09/03/17 02:00 Respiratory Rate 18 09/03/17 02:00 Blood Pressure 135/76 09/03/17 02:00 O2 Sat by Pulse Oximetry (%) 95 09/02/17 15:00 Constitutional: Yes: No Distress, Calm HENT: Yes: Other (no swelling noted to uvula, slightly erythematous pharynx, slightly indurated) Cardiovascular: Yes: Regular Rate and Rhythm Respiratory: Yes: CTA Bilaterally Gastrointestinal: Yes: Soft, Hypoactive Bowel Sounds Labs: CBC, BMP 09/02/17 13:04 09/02/17 13:04 Hospitalist Encounter Assessment: pharyngitis - throat irritated secondary to NGT placement - no swelling of uvula noted, no difficulty breathing - trial cepacol lozenges for irritation
[2017-09-03] MEDS: BENZOCAINE/MENTH/CETYLPYRD CL 1 EACH LOZENGE MM PRN ×2 (06:49→14:10)
[2017-09-03 09:08] LABS: BASO % 0.4 % (0-2.0); EOS % 1.8 % (0-4.5); HEMATOCRIT 34.3 % (32.4-45.2); HEMOGLOBIN 11.4 GM/dL (10.7-15.3); LYMPH % 31.9 % (8-40); MCH 28.3 pg (25.7-33.7); MCHC 33.3 g/dl (32.0-36.0); MEAN CELL VOLUME 84.8 fl (80-96); MONO % 5.6 % (3.8-10.2); NEUT % 60.3 % (42.8-82.8); PLATELET COUNT 195 K/MM3 (134-434); RBC 4.04 M/mm3 (3.60-5.2); RDW 14.4 % (11.6-15.6); WHITE BLOOD COUNT 11.7 K/mm3 (4.0-10.0)
[2017-09-03 10:20] LABS: CHLORIDE 109 mmol/L (98-107); POTASSIUM 3.7 mmol/L (3.5-5.1); SODIUM 142 mmol/L (136-145)
--- NOTE | 2017-09-03 10:51 | PN ---
Progress Note, Physician Chief Complaint: Abdominal pain SBO History of Present Illness: NAD, pain improved NGT, NPO Seen by surgery IVF throat irritation, try lidocaine spray - Current Medication List Current Medications: Active Medications Acetaminophen (Ofirmev Injection -) 1,000 mg IVPB Q6H PRN PRN Reason: PAIN LEVEL 4 - 6 Benzocaine/Menthol (Cepacol Lozenge -) 1 each MM Q2H PRN PRN Reason: SORE THROAT Last Admin: 09/03/17 06:49 Dose: 1 each Dextrose (D50w (Vial) -) 25 gm IVPUSH PRN PRN PRN Reason: hypoglycemia Heparin Sodium (Porcine) (Heparin -) 5,000 unit SQ BID [facility] Last Admin: 09/02/17 21:15 Dose: 5,000 unit Sodium Chloride (Normal Saline -) 1,000 mls @ 100 mls/hr IV ASDIR [facility] Last Admin: 09/02/17 21:16 Dose: 100 mls/hr Insulin Aspart (Novolog Vial Sliding Scale -) 1 vial SQ TIDAC [facility] PRN Reason: Protocol Last Admin: 09/03/17 06:06 Dose: Not Given Morphine Sulfate (Morphine Sulfate) 2 mg IVPUSH Q4H PRN PRN Reason: PAIN LEVEL 7 - 10 Last Admin: 09/03/17 05:40 Dose: 2 mg Ondansetron HCl (Zofran Injection) 4 mg IVPUSH Q6H PRN PRN Reason: NAUSEA AND/OR VOMITING Last Admin: 09/02/17 12:25 Dose: 4 mg - Objective Vital Signs: Vital Signs Temperature 98.5 F 09/03/17 06:40 Pulse Rate 77 09/03/17 06:40 Respiratory Rate 20 09/03/17 06:40 Blood Pressure 138/73 09/03/17 06:40 O2 Sat by Pulse Oximetry (%) 95 09/02/17 22:00 Constitutional: Yes: Well Nourished, No Distress, Calm Cardiovascular: Yes: Regular Rate and Rhythm Respiratory: Yes: Regular Gastrointestinal: Yes: Distention, Hypoactive Bowel Sounds, Tenderness Musculoskeletal: Yes: WNL Extremities: Yes: WNL Edema: No Peripheral Pulses WNL: Yes Neurological: Yes: Alert, Oriented Psychiatric: Yes: Alert, Oriented Labs: CBC, BMP 09/03/17 07:45 INR, PTT INR 1.03 (0.82-1.09) 09/01/17 22:20 Problem List - Problems (1) Small bowel obstruction Assessment/Plan: -NPO -NGT -Serial abdominal Xrays -Surgery consult -daily labs -pain management with acetaminophen IV and morphine Code(s): K56.609 - UNSP INTESTNL OBST, UNSP TO PARTIAL VERSUS COMPLETE OBST (2) Leukocytosis Assessment/Plan: Acute on Chronic -likely inflammatory -no LA -ID consult to r/o any infectious etiology -see oncologist outpatient for history of breast CA- on Letrozole O/P Code(s): D72.829 - ELEVATED WHITE BLOOD CELL COUNT, UNSPECIFIED Qualifiers: Leukocytosis type: unspecified Qualified Code(s): D72.829 - Elevated white blood cell count, unspecified (3) Diabetes Assessment/Plan: last A1c 1 year ago was 8.5 -repeat A1c at 8.9 -BGM -D50 IVP for BGM below 70 mg/dl -Insulin sliding scale Code(s): E11.9 - TYPE 2 DIABETES MELLITUS WITHOUT COMPLICATIONS Assessment/Plan see problem list DVT prophylaxis
[2017-09-03 11:03] LABS: ANION GAP 11 (8-16); BLOOD UREA NITROGEN 8 mg/dL (7-18); CALCIUM 8.6 mg/dL (8.5-10.1); CO2 22 mmol/L (21-32); CREATININE 0.5 mg/dL (0.55-1.02); GLUCOSE,RANDOM 150 mg/dL (74-106); MAGNESIUM 1.8 mg/dL (1.8-2.4); PHOSPHOROUS 3.6 mg/dL (2.5-4.9)
--- NOTE | 2017-09-03 11:08 | PN ---
Progress Note, Physician History of Present Illness: Pt with partial SBO, NPO with NGT, trying some ice chips this am but still with some nausea. Passing gas, no BM. Took last dose of morphine early this am. Pain improving. Thought her throat felt very tight before - most likely irritation from NGT. Mostly clear output in canister. - Current Medication List Current Medications: Active Medications Acetaminophen (Ofirmev Injection -) 1,000 mg IVPB Q6H PRN PRN Reason: PAIN LEVEL 4 - 6 Benzocaine/Menthol (Cepacol Lozenge -) 1 each MM Q2H PRN PRN Reason: SORE THROAT Last Admin: 09/03/17 06:49 Dose: 1 each Dextrose (D50w (Vial) -) 25 gm IVPUSH PRN PRN PRN Reason: hypoglycemia Heparin Sodium (Porcine) (Heparin -) 5,000 unit SQ BID [facility] Last Admin: 09/02/17 21:15 Dose: 5,000 unit Sodium Chloride (Normal Saline -) 1,000 mls @ 100 mls/hr IV ASDIR [facility] Last Admin: 09/02/17 21:16 Dose: 100 mls/hr Insulin Aspart (Novolog Vial Sliding Scale -) 1 vial SQ TIDAC [facility] PRN Reason: Protocol Last Admin: 09/03/17 06:06 Dose: Not Given Morphine Sulfate (Morphine Sulfate) 2 mg IVPUSH Q4H PRN PRN Reason: PAIN LEVEL 7 - 10 Last Admin: 09/03/17 05:40 Dose: 2 mg Ondansetron HCl (Zofran Injection) 4 mg IVPUSH Q6H PRN PRN Reason: NAUSEA AND/OR VOMITING Last Admin: 09/02/17 12:25 Dose: 4 mg - Objective Vital Signs: Vital Signs Temperature 98.5 F 09/03/17 06:40 Pulse Rate 77 09/03/17 06:40 Respiratory Rate 20 09/03/17 06:40 Blood Pressure 138/73 09/03/17 06:40 O2 Sat by Pulse Oximetry (%) 95 09/02/17 22:00 Constitutional: Yes: No Distress, Calm, Obese Eyes: Yes: Conjunctiva Clear, EOM Intact HENT: Yes: Atraumatic, Normocephalic, Other (NGT) Gastrointestinal: Yes: Soft, Abdomen, Obese, Hypoactive Bowel Sounds, Tenderness , Epigastrium (mild, no R/G) Extremities: No: Cool, Cyanosis Integumentary: No: Jaundice, Rash Neurological: Yes: Alert, Oriented Labs: CBC, BMP 09/03/17 07:45 09/03/17 07:45 - ....Imaging X-ray: Image Reviewed (images personally reviewed, report pending: AXR with stool throughout colon, improved gas pattern, no air-fluid levels on upright, NGT in place) Problem List - Problems (1) Partial intestinal obstruction Assessment/Plan: continue NPO/NG for now IV fluids dulcolax suppository consider NG out and clears later if good bowel movement will check rectal exam later Code(s): K56.600 - PARTIAL INTESTINAL OBSTRUCTION, UNSPECIFIED TO CAUSE Qualifiers: Intestinal obstruction type: obstruction due to adhesions Qualified Code(s) : K56.51 - Intestinal adhesions [bands], with partial obstruction (2) Epigastric pain Code(s): R10.13 - EPIGASTRIC PAIN (3) Leukocytosis Assessment/Plan: improving Code(s): D72.829 - ELEVATED WHITE BLOOD CELL COUNT, UNSPECIFIED Qualifiers: Leukocytosis type: unspecified Qualified Code(s): D72.829 - Elevated white blood cell count, unspecified (4) Diabetes mellitus type 2 in obese Code(s): E11.69 - TYPE 2 DIABETES MELLITUS WITH OTHER SPECIFIED COMPLICATION; E66.9 - OBESITY, UNSPECIFIED
[2017-09-03] MEDS ORDERED: PT OWN MED DRAWER 7, Y5N ONE ×2 (11:12→14:06)
[2017-09-03] MEDS ORDERED: TETRACAINE/BENZOCAINE/BUTAMBEN 20 GM SPR TP PRN (12:22)
[2017-09-03] MEDS ORDERED: BISACODYL 10 MG SUPP.RECT PR ONE (14:19)
[2017-09-03] MEDS: HEPARIN NA (PORCINE) 5,000 UNITS/ML 1ML VIAL SQ SCH ×2 (14:35→22:11)
[2017-09-03 15:52] LABS: CHOLESTEROL 166 mg/dL (50-200); HDL CHOLESTEROL 30 mg/dL (40-60); TRIGLYCERIDES 196 mg/dL (35-160)
[2017-09-03] MEDS: SODIUM CHLORIDE 1,000 ML IV SCH (22:00)
[2017-09-03] MEDS: SENNOSIDES 8.6MG TABLET (FP) PO SCH (22:11)
[2017-09-04] MEDS ORDERED: PT OWN MED DRAWER 7, Y5N ONE (01:17)
[2017-09-04] MEDS: INSULIN SLIDING SCALE (NOVOLOG) 1 VIAL SQ SCH ×3 (06:32→17:22)
[2017-09-04] MEDS: SODIUM CHLORIDE 1,000 ML IV SCH (06:33)
--- NOTE | 2017-09-04 08:12 | PN ---
Progress Note, Physician History of Present Illness: Pt with partial SBO, feeling better. Passing gas, had large BM this morning after senna last night. No pain. Tolerated clears last night and this morning. AXR yesterday showed improved gas pattern, constipation. - Current Medication List Current Medications: Active Medications Acetaminophen (Ofirmev Injection -) 1,000 mg IVPB Q6H PRN PRN Reason: PAIN LEVEL 4 - 6 Dextrose (D50w (Vial) -) 25 gm IVPUSH PRN PRN PRN Reason: hypoglycemia Heparin Sodium (Porcine) (Heparin -) 5,000 unit SQ BID [facility] Last Admin: 09/03/17 22:11 Dose: 5,000 unit Sodium Chloride (Normal Saline -) 1,000 mls @ 100 mls/hr IV ASDIR [facility] Last Admin: 09/04/17 06:33 Dose: Not Given Insulin Aspart (Novolog Vial Sliding Scale -) 1 vial SQ TIDAC [facility] PRN Reason: Protocol Last Admin: 09/04/17 06:32 Dose: Not Given Morphine Sulfate (Morphine Sulfate) 2 mg IVPUSH Q4H PRN PRN Reason: PAIN LEVEL 7 - 10 Last Admin: 09/03/17 14:10 Dose: 2 mg Ondansetron HCl (Zofran Injection) 4 mg IVPUSH Q6H PRN PRN Reason: NAUSEA AND/OR VOMITING Last Admin: 09/02/17 12:25 Dose: 4 mg Senna (Senna -) 2 tab PO HS [facility] Last Admin: 09/03/17 22:11 Dose: 2 tab - Objective Vital Signs: Vital Signs Temperature 98.4 F 09/04/17 08:02 Pulse Rate 86 09/04/17 08:02 Respiratory Rate 20 09/04/17 08:02 Blood Pressure 155/91 09/04/17 08:02 O2 Sat by Pulse Oximetry (%) 95 09/03/17 21:00 Constitutional: Yes: No Distress, Calm, Obese Eyes: Yes: Conjunctiva Clear, EOM Intact HENT: Yes: Atraumatic, Normocephalic Gastrointestinal: Yes: Soft, Abdomen, Obese. No: Tenderness, Tenderness, Epigastrium ...Rectal Exam: Yes: Deferred Extremities: No: Cool, Cyanosis Neurological: Yes: Alert, Oriented Labs: - ....Imaging X-ray: Report Reviewed, Image Reviewed Problem List - Problems (1) Partial intestinal obstruction Assessment/Plan: tolerating clears, no pain, passing gas and has had several BMs obstruction appears resolved will give diabetic diet advised to continue bowel regimen at home that keeps her stools soft and moving encouraged adequate noncaffeinated fluid intake at home with plenty of fiber discharge at discretion of primary team if tolerating diet no need for surgical followup should f/u with PMD within 1-2 weeks Code(s): K56.600 - PARTIAL INTESTINAL OBSTRUCTION, UNSPECIFIED TO CAUSE Qualifiers: Intestinal obstruction type: obstruction due to adhesions Qualified Code(s) : K56.51 - Intestinal adhesions [bands], with partial obstruction (2) Epigastric pain Code(s): R10.13 - EPIGASTRIC PAIN (3) Leukocytosis Code(s): D72.829 - ELEVATED WHITE BLOOD CELL COUNT, UNSPECIFIED Qualifiers: Leukocytosis type: unspecified Qualified Code(s): D72.829 - Elevated white blood cell count, unspecified (4) Diabetes mellitus type 2 in obese Code(s): E11.69 - TYPE 2 DIABETES MELLITUS WITH OTHER SPECIFIED COMPLICATION; E66.9 - OBESITY, UNSPECIFIED
--- NOTE | 2017-09-04 08:44 | PN ---
Progress Note, Physician - Current Medication List Current Medications: Active Medications Acetaminophen (Ofirmev Injection -) 1,000 mg IVPB Q6H PRN PRN Reason: PAIN LEVEL 4 - 6 Dextrose (D50w (Vial) -) 25 gm IVPUSH PRN PRN PRN Reason: hypoglycemia Heparin Sodium (Porcine) (Heparin -) 5,000 unit SQ BID [facility] Last Admin: 09/03/17 22:11 Dose: 5,000 unit Insulin Aspart (Novolog Vial Sliding Scale -) 1 vial SQ TIDAC [facility] PRN Reason: Protocol Last Admin: 09/04/17 06:32 Dose: Not Given Morphine Sulfate (Morphine Sulfate) 2 mg IVPUSH Q4H PRN PRN Reason: PAIN LEVEL 7 - 10 Last Admin: 09/03/17 14:10 Dose: 2 mg Ondansetron HCl (Zofran Injection) 4 mg IVPUSH Q6H PRN PRN Reason: NAUSEA AND/OR VOMITING Last Admin: 09/02/17 12:25 Dose: 4 mg Senna (Senna -) 2 tab PO HS [facility] Last Admin: 09/03/17 22:11 Dose: 2 tab - Objective Vital Signs: Vital Signs Temperature 98.4 F 09/04/17 08:02 Pulse Rate 86 09/04/17 08:02 Respiratory Rate 20 09/04/17 08:02 Blood Pressure 155/91 09/04/17 08:02 O2 Sat by Pulse Oximetry (%) 95 09/03/17 21:00 Cardiovascular: Yes: Regular Rate and Rhythm Respiratory: Yes: Regular, CTA Bilaterally Gastrointestinal: Yes: Normal Bowel Sounds, Soft. No: Tenderness Labs: CBC, BMP 09/03/17 07:45 09/03/17 07:45 INR, PTT INR 1.03 (0.82-1.09) 09/01/17 22:20 Assessment/Plan - Problems (1) Small bowel obstruction Assessment/Plan: -Diet per Surgery -NGT -Serial abdominal Xrays noted---resolved -Surgery consult noted -daily labs -pain management with acetaminophen IV and morphine Code(s): K56.609 - UNSP INTESTNL OBST, UNSP TO PARTIAL VERSUS COMPLETE OBST (2) Leukocytosis Assessment/Plan: Acute on Chronic -likely inflammatory -no LA -ID consult to r/o any infectious etiology -see oncologist outpatient for history of breast CA- on Letrozole O/P Code(s): D72.829 - ELEVATED WHITE BLOOD CELL COUNT, UNSPECIFIED Qualifiers: Leukocytosis type: unspecified Qualified Code(s): D72.829 - Elevated white blood cell count, unspecified (3) Diabetes Assessment/Plan: last A1c 1 year ago was 8.5 -repeat A1c at 8.9 -BGM -D50 IVP for BGM below 70 mg/dl -Insulin sliding scale -once tolerating diet will resume meds Code(s): E11.9 - TYPE 2 DIABETES MELLITUS WITHOUT COMPLICATIONS
[2017-09-04] MEDS: HEPARIN NA (PORCINE) 5,000 UNITS/ML 1ML VIAL SQ SCH ×2 (09:49→21:56)
[2017-09-04 10:06] LABS: BASO % 0.5 % (0-2.0); EOS % 1.6 % (0-4.5); HEMATOCRIT 34.4 % (32.4-45.2); HEMOGLOBIN 11.6 GM/dL (10.7-15.3); LYMPH % 29.7 % (8-40); MCH 28.4 pg (25.7-33.7); MCHC 33.8 g/dl (32.0-36.0); MEAN CELL VOLUME 83.8 fl (80-96); MEAN PLT VOLUME 10.6 fl (7.5-11.1); MONO % 5.9 % (3.8-10.2); NEUT % 62.3 % (42.8-82.8); PLATELET COUNT 202 K/MM3 (134-434); RDW 13.8 % (11.6-15.6); WHITE BLOOD COUNT 10.3 K/mm3 (4.0-10.0)
[2017-09-04 10:25] LABS: ALBUMIN 3.3 g/dl (3.4-5.0); ANION GAP 9 (8-16); BILIRUBIN,TOTAL 0.5 mg/dL (0.2-1.0); BLOOD UREA NITROGEN 7 mg/dL (7-18); CALCIUM 8.4 mg/dL (8.5-10.1); CHLORIDE 105 mmol/L (98-107); CO2 25 mmol/L (21-32); CREATININE 0.8 mg/dL (0.55-1.02); GLUCOSE,RANDOM 269 mg/dL (74-106); POTASSIUM 3.3 mmol/L (3.5-5.1); SGOT/AST 13 U/L (15-37); SGPT/ALT 14 U/L (12-78); SODIUM 139 mmol/L (136-145); TOT PROT 6.8 g/dl (6.4-8.2)
[2017-09-04 10:26] LABS: ALK PHOS 114 U/L (45-117)
[2017-09-04] MEDS ORDERED: INSULIN (NOVOLOG) ASPART 100 UNITS/ML 10ML VIAL ONE (11:49)
[2017-09-04] MEDS ORDERED: diphenhydrAMINE HCL 25 MG CAPSULE (FP) PO PRN (20:52)
[2017-09-04] MEDS ORDERED: ACETAMINOPHEN 325 MG TABLET (FP) PO PRN (20:53)
[2017-09-04] MEDS: SENNOSIDES 8.6MG TABLET (FP) PO SCH (21:56)
--- NOTE | 2017-09-04 23:51 | CONSULT ---
Consult Consult Specialty:: endocrine Referred by:: mp leon md Reason for Consultation:: diabetes mellitus - History of Present Illness Chief Complaint: high blood sugars History of Present Illness: 52 year old female with a significant past medical history of diabetes mellitus, sbo, many years ago, hysterectomy, who presented to the ED with N/V and abdominal cramping since 4pm today. She had recent bout vomiting dizziness found to have sbo,requiring ngt and ivfluids,her sugars have been high,and unable to control since not able to keep food down - History Source History Provided By: Patient - Past Medical History Pulmonary: Yes: COPD Gastrointestinal: Yes: GERD ...: No Musculoskeletal: Yes: Chronic low back pain (herniated disc) Endocrine: Yes: Diabetes Mellitus - Past Surgical History Past Surgical History: Yes: , Hysterectomy - Alcohol/Substance Use Hx Alcohol Use: No History of Substance Use: reports: None - Smoking History Smoking history: Current every day smoker Have you smoked in the past 12 months: Yes Aproximately how many cigarettes per day: 6 (cut down recently) - Social History ADL: Independent Home Medications - Allergies Allergies/Adverse Reactions: Allergies Allergy/AdvReac Type Severity Reaction Status Date / Time No Known Allergies Allergy Verified 09/01/17 21:26 - Home Medications Home Medications: Ambulatory Orders Letrozole 2.5 mg PO HS 01/25/16 Liraglutide [Victoza -] 1.8 mg SQ HS 01/25/16 Sitagliptin Phosphate [Januvia] 100 mg PO DAILY 01/25/16 Glipizide/Metformin HCl [Glipizide-Metformin 5-500 mg] 1 each PO DAILY 09/02/17 Review of Systems - Review of Systems Constitutional: reports: Loss of Appetite Eyes: reports: No Symptoms HENT: reports: No Symptoms Neck: reports: No Symptoms Cardiovascular: reports: Shortness of Breath Respiratory: reports: No Symptoms Gastrointestinal: reports: Bloating, Constipation Genitourinary: reports: No Symptoms Breasts: reports: No Symptoms Reported Musculoskeletal: reports: No Symptoms Integumentary: reports: No Symptoms Neurological: reports: No Symptoms Endocrine: reports: No Symptoms Physical Exam Vital Signs: Vital Signs Temperature 98.7 F 09/04/17 22:40 Pulse Rate 72 09/04/17 22:40 Respiratory Rate 20 09/04/17 22:40 Blood Pressure 126/80 09/04/17 22:40 O2 Sat by Pulse Oximetry (%) 99 09/04/17 09:00 Constitutional: Yes: Anxious Eyes: Yes: EOM Intact HENT: Yes: Normocephalic Neck: Yes: Trachea Midline Cardiovascular: Yes: Regular Rate and Rhythm Respiratory: Yes: CTA Bilaterally Gastrointestinal: Yes: Distention, Tenderness, Tenderness, Epigastrium ...Rectal Exam: Yes: Deferred Renal/: Yes: WNL Breast(s): Yes: WNL Musculoskeletal: Yes: WNL Extremities: Yes: WNL Edema: No Neurological: Yes: Alert, Oriented Labs: CBC, BMP 09/04/17 09:10 09/04/17 09:10 Problem List - Problems (1) Diabetes mellitus type 2 in obese Code(s): E11.69 - TYPE 2 DIABETES MELLITUS WITH OTHER SPECIFIED COMPLICATION; E66.9 - OBESITY, UNSPECIFIED (2) Epigastric pain Code(s): R10.13 - EPIGASTRIC PAIN (3) Leukocytosis Code(s): D72.829 - ELEVATED WHITE BLOOD CELL COUNT, UNSPECIFIED Qualifiers: Leukocytosis type: unspecified Qualified Code(s): D72.829 - Elevated white blood cell count, unspecified (4) Partial intestinal obstruction Code(s): K56.600 - PARTIAL INTESTINAL OBSTRUCTION, UNSPECIFIED TO CAUSE Qualifiers: Intestinal obstruction type: obstruction due to adhesions Qualified Code(s) : K56.51 - Intestinal adhesions [bands], with partial obstruction (5) Small bowel obstruction Code(s): K56.609 - UNSP INTESTNL OBST, UNSP TO PARTIAL VERSUS COMPLETE OBST (6) Adverse effect of diclofenac sodium Code(s): T39.395A - ADVERSE EFFECT OF NONSTEROIDAL ANTI-INFLAMMATORY DRUGS, INIT Qualifiers: Encounter type: initial encounter Qualified Code(s): T39.395A - Adverse effect of other nonsteroidal anti-inflammatory drugs [NSAID], initial encounter Assessment/Plan Current Active Problems Diabetes (Acute) Diabetes mellitus type 2 in obese (Acute) Epigastric pain (Acute) Leukocytosis (Acute) Partial intestinal obstruction (Acute) Small bowel obstruction (Acute) Abnormal Lab Results 09/04/17 09/04/17 09:10 09:10 WBC 10.3 H Potassium 3.3 L Random Glucose 269 H Calcium 8.4 L AST 13 L Albumin 3.3 L Laboratory Results - last 24 hr 09/04/17 09/04/17 09/04/17 06:32 09:10 09:10 WBC 10.3 H RBC 4.10 Hgb 11.6 Hct 34.4 MCV 83.8 MCH 28.4 MCHC 33.8 RDW 13.8 Plt Count 202 MPV 10.6 Neutrophils % 62.3 Lymphocytes % 29.7 Monocytes % 5.9 Eosinophils % 1.6 Basophils % 0.5 Sodium 139 Potassium 3.3 L Chloride 105 Carbon Dioxide 25 Anion Gap 9 BUN 7 Creatinine 0.8 Creat Clearance w eGFR > 60 POC Glucometer 118 Random Glucose 269 H Calcium 8.4 L Total Bilirubin 0.5 D AST 13 L ALT 14 Alkaline Phosphatase 114 Total Protein 6.8 Albumin 3.3 L 09/04/17 09/04/17 11:43 16:45 WBC RBC Hgb Hct MCV MCH MCHC RDW Plt Count MPV Neutrophils % Lymphocytes % Monocytes % Eosinophils % Basophils % Sodium Potassium Chloride Carbon Dioxide Anion Gap BUN Creatinine Creat Clearance w eGFR POC Glucometer 184 197 Random Glucose Calcium Total Bilirubin AST ALT Alkaline Phosphatase Total Protein Albumin plan; bgm qid novolog insulin scale ck hba1c once tolerating diet resume oral agent need adjustment likely gi symptoms will need close evaluation as outpatient diabetes need controll
[2017-09-05 05:48] VITALS: PULSE 76
[2017-09-05] MEDS: INSULIN SLIDING SCALE (NOVOLOG) 1 VIAL SQ SCH ×2 (06:27→11:20)
[2017-09-05] MEDS: HEPARIN NA (PORCINE) 5,000 UNITS/ML 1ML VIAL SQ SCH (09:19)
[2017-09-05 09:49] VITALS: BP 110/61; TEMP 98.5
--- NOTE | 2017-09-05 12:12 | PN ---
Progress Note, Physician History of Present Illness: Pt with partial SBO, resolved. Passing gas, having BMs, tolerating diabetic diet. No pain. Ambulating, in good spirits. Notes having hemorrhoid pain now with multiple BMs. - Current Medication List Current Medications: Active Medications Acetaminophen (Tylenol -) 650 mg PO Q6H PRN PRN Reason: PAIN LEVEL 1-5 Last Admin: 09/04/17 21:57 Dose: 650 mg Dextrose (D50w (Vial) -) 25 gm IVPUSH PRN PRN PRN Reason: hypoglycemia Diphenhydramine HCl (Benadryl -) 25 mg PO HS PRN PRN Reason: INSOMNIA Last Admin: 09/04/17 21:56 Dose: 25 mg Heparin Sodium (Porcine) (Heparin -) 5,000 unit SQ BID [facility] Last Admin: 09/05/17 09:19 Dose: Not Given Insulin Aspart (Novolog Vial Sliding Scale -) 1 vial SQ TIDAC [facility] PRN Reason: Protocol Last Admin: 09/05/17 11:20 Dose: Not Given Morphine Sulfate (Morphine Sulfate) 2 mg IVPUSH Q4H PRN PRN Reason: PAIN LEVEL 7 - 10 Last Admin: 09/03/17 14:10 Dose: 2 mg Ondansetron HCl (Zofran Injection) 4 mg IVPUSH Q6H PRN PRN Reason: NAUSEA AND/OR VOMITING Last Admin: 09/02/17 12:25 Dose: 4 mg Senna (Senna -) 2 tab PO HS [facility] Last Admin: 09/04/17 21:56 Dose: 2 tab - Objective Vital Signs: Vital Signs Temperature 98.5 F 09/05/17 09:00 Pulse Rate 76 09/05/17 09:00 Respiratory Rate 20 09/05/17 09:00 Blood Pressure 110/61 09/05/17 09:00 O2 Sat by Pulse Oximetry (%) 99 09/04/17 21:00 Constitutional: Yes: No Distress, Calm, Obese Eyes: Yes: Conjunctiva Clear, EOM Intact HENT: Yes: Atraumatic, Normocephalic Gastrointestinal: Yes: Soft, Abdomen, Obese. No: Distention, Tenderness ...Rectal Exam: Yes: Deferred Extremities: No: Cool, Cyanosis Integumentary: No: Jaundice, Rash Neurological: Yes: Alert, Oriented Psychiatric: Yes: Alert, Oriented Labs: no new labs Problem List - Problems (1) Partial intestinal obstruction Assessment/Plan: tolerating diet, no pain, passing gas and has had several BMs obstruction resolved advised to continue bowel regimen at home that keeps her stools soft and moving hemorrhoids likely related to constipation encouraged adequate noncaffeinated fluid intake at home with plenty of fiber (25 -30g/day) discharge at discretion of primary team no need for surgical followup should f/u with PMD within 1-2 weeks Code(s): K56.600 - PARTIAL INTESTINAL OBSTRUCTION, UNSPECIFIED TO CAUSE Qualifiers: Intestinal obstruction type: obstruction due to adhesions Qualified Code(s) : K56.51 - Intestinal adhesions [bands], with partial obstruction (2) Epigastric pain Code(s): R10.13 - EPIGASTRIC PAIN (3) Leukocytosis Code(s): D72.829 - ELEVATED WHITE BLOOD CELL COUNT, UNSPECIFIED Qualifiers: Leukocytosis type: unspecified Qualified Code(s): D72.829 - Elevated white blood cell count, unspecified (4) Diabetes mellitus type 2 in obese Code(s): E11.69 - TYPE 2 DIABETES MELLITUS WITH OTHER SPECIFIED COMPLICATION; E66.9 - OBESITY, UNSPECIFIED
--- NOTE | 2017-09-05 12:37 | PN ---
Progress Note, Physician Chief Complaint: Abdominal pain SBO History of Present Illness: Pt with partial SBO, resolved. Passing gas, having BMs, tolerating diabetic diet. No pain. Ambulating, in good spirits. Notes having hemorrhoid pain now with multiple BMs. - Current Medication List Current Medications: Active Medications Acetaminophen (Tylenol -) 650 mg PO Q6H PRN PRN Reason: PAIN LEVEL 1-5 Last Admin: 09/04/17 21:57 Dose: 650 mg Dextrose (D50w (Vial) -) 25 gm IVPUSH PRN PRN PRN Reason: hypoglycemia Diphenhydramine HCl (Benadryl -) 25 mg PO HS PRN PRN Reason: INSOMNIA Last Admin: 09/04/17 21:56 Dose: 25 mg Heparin Sodium (Porcine) (Heparin -) 5,000 unit SQ BID [facility] Last Admin: 09/05/17 09:19 Dose: Not Given Insulin Aspart (Novolog Vial Sliding Scale -) 1 vial SQ TIDAC [facility] PRN Reason: Protocol Last Admin: 09/05/17 11:20 Dose: Not Given Morphine Sulfate (Morphine Sulfate) 2 mg IVPUSH Q4H PRN PRN Reason: PAIN LEVEL 7 - 10 Last Admin: 09/03/17 14:10 Dose: 2 mg Ondansetron HCl (Zofran Injection) 4 mg IVPUSH Q6H PRN PRN Reason: NAUSEA AND/OR VOMITING Last Admin: 09/02/17 12:25 Dose: 4 mg Senna (Senna -) 2 tab PO HS [facility] Last Admin: 09/04/17 21:56 Dose: 2 tab - Objective Vital Signs: Vital Signs Temperature 98.5 F 09/05/17 09:00 Pulse Rate 76 09/05/17 09:00 Respiratory Rate 20 09/05/17 09:00 Blood Pressure 110/61 09/05/17 09:00 O2 Sat by Pulse Oximetry (%) 99 09/04/17 21:00 Constitutional: Yes: Well Nourished, No Distress, Calm Cardiovascular: Yes: Regular Rate and Rhythm Respiratory: Yes: Regular Gastrointestinal: Yes: Normal Bowel Sounds, Soft, Abdomen, Obese Musculoskeletal: Yes: WNL Extremities: Yes: WNL Edema: No Peripheral Pulses WNL: Yes Neurological: Yes: Alert, Oriented Psychiatric: Yes: Alert, Oriented Labs: CBC, BMP 09/04/17 09:10 09/04/17 09:10 INR, PTT INR 1.03 (0.82-1.09) 09/01/17 22:20 Problem List - Problems (1) Small bowel obstruction Assessment/Plan: -resolved Code(s): K56.609 - UNSP INTESTNL OBST, UNSP TO PARTIAL VERSUS COMPLETE OBST (2) Leukocytosis Assessment/Plan: resolved Code(s): D72.829 - ELEVATED WHITE BLOOD CELL COUNT, UNSPECIFIED Qualifiers: Leukocytosis type: unspecified Qualified Code(s): D72.829 - Elevated white blood cell count, unspecified (3) Diabetes Assessment/Plan: last A1c 1 year ago was 8.5 -repeat A1c at 8.9 -Follow up with Endocrinology outpatient Code(s): E11.9 - TYPE 2 DIABETES MELLITUS WITHOUT COMPLICATIONS Assessment/Plan see problem list
== END 2017-09-05 13:56 | disposition home or self-care (01) | DRG 247 ==
LOC: JER 21:22 → JERBED 09-02 02:40 → J6S 09-02 18:55
PROVIDERS: ADMIT Internal Medicine; ATTEND Family Medicine
PROC: 0D9670Z Drainage of Stomach with Drainage Device, Via Natural or Artificial Opening (ICD-10-PCS; principal; 2017-09-02)
DX: K56.51 Intestinal adhesions [bands], with partial obstruction (principal); J44.9 Chronic obstructive pulmonary disease, unspecified; Z85.3 Personal history of malignant neoplasm of breast; E11.9 Type 2 diabetes mellitus without complications; K64.8 Other hemorrhoids; F17.210 Nicotine dependence, cigarettes, uncomplicated; E66.9 Obesity, unspecified; Z68.32 Body mass index [BMI] 32.0-32.9, adult; D72.829 Elevated white blood cell count, unspecified; Z90.710 Acquired absence of both cervix and uterus; K21.9 Gastro-esophageal reflux disease without esophagitis; Z79.84 Long term (current) use of oral hypoglycemic drugs; J02.9 Acute pharyngitis, unspecified; M51.26 Other intervertebral disc displacement, lumbar region
CPT/HCPCS: 36415; 71045-TC-FY; 74018-TC-FY; 74019-TC-FY; 74177-TC; 76705-TC; 80048; 80053; 80061; 81003; 82803; 82962; 83036; 83605; 83690; 83721; 83735; 84100; 84484; 85025; 85610; 85730; 86850; 86900; 86901; 87040; 87086; 93005; 93010; 99285-25; J1644; J7030